=== PATIENT | male | born 1990 | race African-American/Black ===

== ENCOUNTER 2020-01-30 09:55 | Emergency (ER) | payer SELFPAY ==
[~2020-01-30] VITALS: Ht 180.3 cm; Wt 62.2 kg
[2020-01-30] MEDS ORDERED: SODIUM CHLORIDE 0.9% 1,000ML IVBOLUS ONE (10:30)
[2020-01-30] MEDS ORDERED: SODIUM CHLORIDE FLUSH 10ML SYR IVF ONE (10:30)
--- NOTE | 2020-01-30 10:46 | NUR ---
PT TO ALL MONITORS AT THIS TIME, PIV INITIATED LABS DRAWN AND SENT, UA COLLECTED. PT WITH CALL LIGHT IN REACH.
[2020-01-30 10:54] LABS: MICROSCOPIC AUTO
[2020-01-30 11:01] LABS: INTERNATIONAL NORMALIZED RATIO 0.99 (0.93-1.1); PROTHROMBIN TIME 10.2 Seconds (9.6-11.5)
[2020-01-30 11:06] LABS: BASOPHILS % (AUTO) 0 % (0-1); EOSINOPHILS % (AUTO) 0 % (1-7); LYMPHOCYTES % (AUTO) 14 % (22-44); MEAN CORPUSCULAR HEMOGLOBIN 31.7 pg (27.5-34.5); MEAN CORPUSCULAR HGB CONC 33.7 g/dL (33.2-36.2); MEAN PLATELET VOLUME 10.1 fL (7.4-10.4); MONOCYTES % (AUTO) 8 % (2-9); NEUTROPHILS % (AUTO) 77 % (42-75); PLATELET COUNT 275 x10^3/uL (130-400); RED BLOOD COUNT 4.71 x10^6/uL (4.38-5.82); RED CELL DISTRIBUTION WIDTH 13.1 % (9.4-14.8)
[2020-01-30 11:19] LABS: ALBUMIN 3.9 g/dL (3.4-5.0); ANION GAP 5 mmol/L (5-15); CHLORIDE 104 mmol/L (98-107)
[2020-01-30 11:24] LABS: ALANINE AMINOTRANSFERASE 35 U/L (12-78); ALKALINE PHOSPHATASE 61 U/L (45-117); BILIRUBIN,TOTAL 0.6 mg/dL (0.2-1.0); CREATININE 0.73 mg/dL (0.7-1.3); TOTAL PROTEIN 8.4 g/dL (6.4-8.2); TROPONIN I < 0.015 ng/mL (0.000-0.045)
[2020-01-30 11:33] LABS: MD SCAN
--- NOTE | 2020-01-30 12:06 | NUR ---
PT AMBULATES TO BR WITH STEADY GAIT, BACK TO RM NOW. PLACED FOR RECHECK
[2020-01-30 12:34] VITALS: BP 144/88
== END 2020-01-30 13:05 | disposition home or self-care (01) ==
LOC: EDBD 09:55 → ED 11:25
DX: N30.01 Acute cystitis with hematuria (principal); J18.0 Bronchopneumonia, unspecified organism; R00.0 Tachycardia, unspecified; I51.7 Cardiomegaly
CPT/HCPCS: 36415; 71045; 80053; 81001; 83735; 84484; 85025; 85610; 87086; 87491; 87591; 93005; 99285; J7030